=== PATIENT | male | born 1960 | race Caucasian/White ===

== ENCOUNTER 2022-02-19 20:50 | Emergency (ER) | payer OTHER, SELFPAY ==
[2022-02-19 21:11] VITALS: BP 193/84; PULSE 63; RESP 17; TEMP 36.7; O2SAT 98; BMI 23.4
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
[2022-02-19] MEDS: HYDROCODONE/ACET 5/325 TABLET 1 TAB PO ×2 (23:02→23:39)
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
[2022-02-19] MEDS: TET,DIPH,PERTUSS(ACELL),VAC/PF 0.5 ML SYRINGE IM (23:39)
[2022-02-19] MEDS: LIDOCAINE/PRILOCAINE 5 GM TOP (23:40)
[2022-02-20] MEDS: BACITRACIN OINT 0.9 GM PCKT 1 APPLIC TOP (00:33)
[2022-02-20] MEDS: HYDROCODONE/ACET 5/325 PREPACK 1 BOTTLE MISC (00:49)
--- NOTE | 2022-02-20 00:52 | PC.NURSE ---
debridement of blister to 4th finger done by Dr. Emerson
[2022-02-20 00:53] VITALS: BP 118/56; PULSE 55; RESP 17; O2SAT 98
== END 2022-02-20 00:54 | disposition home or self-care (01) ==
PROVIDERS: Emergency Provider Emergency Medicine
DX: T23.232A Burn of second degree of multiple left fingers (nail), not including thumb, initial encounter (principal); X12.XXXA Contact with other hot fluids, initial encounter; Z23 Encounter for immunization
CPT/HCPCS: 90471; 99283; 90715